=== PATIENT | female | born 1995 | race Caucasian/White ===

== ENCOUNTER 2025-04-06 03:08 | Emergency (ER) | payer OTHER, SELFPAY ==
[2025-04-06 03:26] VITALS: BP 118/82; PULSE 111; RESP 18; TEMP 35.9; O2SAT 98
--- NOTE | 2025-04-06 03:54 | ED_ITS ---
HPI - General Adult General Chief complaint: Nausea/Vomiting Stated complaint: vomiting Time Seen by Provider: 04/06/25 03:37 Source: patient Mode of arrival: ambulatory Limitations: no limitations History of Present Illness HPI narrative: 29-year-old presents to the ED with 5 days of intermittent nausea and vomiting. Patient uses injectable semaglutide for weight loss, prescribed from an online provider and delivered from a compounding pharmacy. Last injection was Thursday, which is 4 days ago. On Thursday, they realized her menstrual cycle was late and took a test and it was positive. Has previously been on gender affirming hormone treatment, not currently using. Patient suspect they might be also because of the nausea and vomiting. No prior pregnancies. Reports that they took miss a per stone prescribed to terminate the at about 8:00 p.m. tonight. Did vomit up about a 1/2 hour later, is uncertain if they kept in enough of the medication to be effective. Has never used medications to terminate in the past but reports that her sister has and is familiar with the process. There is no fever, there is no blood in the vomit or stools. Has tried Pepto-Bismol to help with nausea, was not effective. Reports normal urination, decreased appetite. Mild epigastric pain, no pain in other areas of the abdomen. No unusual vaginal discharge, hematuria or skin changes. No cardiopulmonary symptoms. Is worried about holding down the rest of the medication to terminate the as well. Past medical history benign per their report. No long-term medications. Has previously been on male hormone therapy. Denies drug allergies. ROS is notable for the nausea and vomiting as above only, otherwise denies times 12 systems. Related Data Home Medications ?Medication ?Instructions ?Recorded ?Confirmed No Known Home Medications 04/06/2503/12 Allergies Allergy/AdvReac Type Severity Reaction Status Date / Time No Known Drug Allergies Allergy Verified 04/06/25 03:38 [facility] Social History Smoking Status: Never smoker Do you use any of these nicotine containing products: None Second hand tobacco smoke exposure: No How often do you have a drink containing alcohol: monthly or less How often do you have six or more drinks on one occasion: Never AUDIT-C Alcohol total score: 1 Non-prescribed substance use: denies use service: No Exam Const: Vital Signs, click to edit/add: Vital Signs - 24 hr 04/06/25 03:26 Temperature 96.7 F L Pulse Rate [Pulse Oximeter] 111 H Respiratory Rate 18 Blood Pressure [Ri ght Upper Arm] 118/82 Pulse Oximetry 98 Oxygen Delivery Me thod Room Air Documenting provider has reviewed patient's vital signs: yes Common normals: no apparent distress General appearance: cooperative and comfortable HENMT: Common normals: normocephalic, moist oral mucous membranes and oropharynx normal Head and scalp: normocephalic Mouth: oral and palatal mucosa normal Throat: posterior oropharynx normal Eye: Common normals: conjunctivae normal General eye: normal appearance of both eyes Conjunctiva: conjunctiva(e) normal Neck & C-Spine: General: normal visual inspection Resp: Common normals: normal respiratory effort, no use of accessory muscles and clear to auscultation bilaterally Effort & inspection: able to speak in complete sentences Auscultation: clear to auscultation bilaterally Cardio: Common normals: regular rate, regular rhythm, S1 normal heart sound, S2 normal heart sound and no murmurs Rate: regular rate Rhythm: regular rhythm Heart sounds: S1 normal and S2 normal GI: Common normals: Normal to inspection, nondistended, normoactive bowel sounds present, soft to palpation, no hepatosplenomegaly and no masses Palpation: soft and no hepatosplenomegaly Other: Tender epigastrium, no rebound tenderness or guarding. Extremity: Common normals: normal to inspection, normal capillary refill and no pedal edema Psych: Appearance: grossly normal Attitude: calm Insight: insight good Judgement: judgment good Skin: Common normals: no rashes or lesions noted General skin exam: no rashes or lesions noted Course Course ED Course: 29-year-old with nausea and vomiting in early , likely complicated by i njectable G LP 1 medications. No signs of hypotension is mildly tachycardic. No fever. Abdominal exam is not suspicious for pancreatitis, gallbladder disease, obstruction or other serious pathology. Counseled patient that I think it is reasonable to try and anti nausea medicine and an and acid and see how things go. If she is able to hold down liquids with this intervention, could potentially discharge patient with a few more days of Zofran to complete her termination if they choose. I have encouraged her to stop the weight loss injection for now. If patient does not respond to the oral medications, consider additional workup, labs or imaging. Reevaluation(s) Reevaluation #1: Update: We gave the Zofran about a 1/2 hour to kick in and then tried some sips. She is not tolerating this. Will place peripheral IV, give 1 L of fluid, 10 of Reglan and re-evaluate. Second update: Patient is feeling quite a bit better after the IV fluids. She has not had any further retching after the fluids and Reglan. Tachycardia has improved. She is sipping water carefully and at the moment is holding it down. I counseled patient on plan from here. Will give Zofran from [facility], take another dose at 10:00 a.m. and then 6:00 p.m.. If she does choose to terminate the , she may proceed with the previously scheduled side attack at 8:00 p.m.. We discussed alarm symptoms that would warrant ED re-evaluation both for the termination and also for the nausea and vomiting. Work note given for 48 hours. Written instructions provided, alarm symptoms reviewed. All questions answered. Vital Signs Vital signs: Initial Vital Signs Temperature 96.7 F L 04/06/25 03:26 Temperature Source Oral 04/06/25 03:26 Pulse Rate 111 H 04/06/25 03:26 Pulse Rhythm Regular 04/06/25 03:26 Respiratory Rate 18 04/06/25 03:26 Blood Pressure 118/82 04/06/25 03:26 Blood Pressure Mean 94 04/06/25 03:26 Blood Pressure Position Supine 04/06/25 03:26 Pulse Oximetry 98 04/06/25 03:26 Oxygen Delivery Method Room Air 04/06/25 03:26 Vital Signs Temperature 96.7 F L 04/06/25 03:26 Pulse Rate 111 H 04/06/25 03:26 Respiratory Rate 18 04/06/25 03:26 Blood Pressure 118/82 04/06/25 03:26 Pulse Oximetry 98 04/06/25 03:26 Oxygen Delivery Method Room Air 04/06/25 03:26 Temperature 96.7 F L 04/06/25 03:26 Pulse Rate 111 H 04/06/25 03:26 Respiratory Rate 18 04/06/25 03:26 Blood Pressure 118/82 04/06/25 03:26 Pulse Oximetry 98 04/06/25 03:26 Oxygen Delivery Method Room Air 04/06/25 03:26 Medications Administered Medications: Discontinued Medications Generic Name Dose Route Start Last Admin Trade Name Brain PRN Reason Stop Dose Admin Famotidine 20 mg 04/06/25 03:50 04/06/25 04:22 Famotidine 20 Mg Tablet PO 04/06/25 03:51 20 mg ONCE ONE Administration Sodium Chloride 1,000 mls @ 2,000 mls/hr 04/06/25 04:54 04/06/25 05:36 0.9 % Sodium Chloride 1000 Ml IV 04/06/25 05:23 Infused .Q30M ANGELICA Infusion Metoclopramide HCl 10 mg 04/06/25 04:54 04/06/25 05:04 Metoclopramide Hcl 5 Mg/Ml Inj IVP 04/06/25 04:55 10 mg ONCE ONE Administration Ondansetron HCl 8 mg 04/06/25 03:50 04/06/25 03:56 Ondansetron Odt 4 Mg Tab PO 04/06/25 03:51 8 mg ONCE ONE Administration Discharge Plan Discharge Clinical Impression: Vomiting affecting , Medication side effects Patient Disposition: Home w/ Parent or Adult Instructions: Nausea and Vomiting in (ED) Additional Instructions: As we discussed, I think her vomiting is especially bad because of a combination of your injectable medication use and coupled with early . This tends to cause very severe nausea in many people. I would like for you to stop the injectable weight loss medication and if you do decide to terminate the , I would like you off of it for at least 2 weeks. The IV fluids that we have given you will insure that you stay hydrated even though I cannot hope to completely relieve your nausea. My hope is that with the medications, even though you will still be nauseated and have some vomiting, you can take in enough fluids to keep ahead of dehydration. I am giving you some Zofran from the [facility] vending machine. Take another dose at 10:00 a.m. and then plan for a dose at 6:00 p.m.. If you decide to still proceed with termination, you will take your planned medication at 8:00 p.m.. Remember that if you have severe vaginal bleeding, he should come to the ER. Mo st people feel quite a bit better about 48 hours after the medication takes effect. Continue to push fluids. No work for the next 48 hours. You should come back to the ED if you have bloody vomit, high fevers, severe pain or other signs of complications. It is okay to use Tylenol 1000 mg every 6 hours as needed for discomfort as well. Prescriptions: No Action No Known Home Medications Follow Up/Referrals: Provider,Not a Local [Primary Care Provider, Family Practice] Stand Alone Forms: [employer] Info Instructions
[2025-04-06] MEDS: ONDANSETRON ODT 4 MG TAB 8 MG PO (03:56)
[2025-04-06] MEDS: FAMOTIDINE 20 MG TABLET PO (04:22)
[2025-04-06] MEDS: METOCLOPRAMIDE HCL 5 MG/ML INJ 10 MG IVP (05:04)
== END 2025-04-06 05:59 | disposition home or self-care (01) ==
PROVIDERS: Emergency Provider Family Medicine
DX: O21.0 Mild hyperemesis gravidarum (principal); T38.3X5A Adverse effect of insulin and oral hypoglycemic [antidiabetic] drugs, initial encounter
CPT/HCPCS: 96365; 99284; A9270; J2765; J7030